=== PATIENT | female | born 1955 | race Caucasian/White ===

== ENCOUNTER 2019-03-26 10:36 | Day surgery (SDC) | payer OTHER ==
[2019-03-20 12:42] LABS: ABSOLUTE EOSINOPHILS # (AUTO) 0.1 10^3/uL (0.0-0.6); ABSOLUTE LYMPHOCYTES (AUTO) 3.5 10^3/uL (0.5-4.7); ABSOLUTE MONOCYTES (AUTO) 0.9 10^3/uL (0.1-1.4); ABSOLUTE NEUT (AUTO) 10.7 10^3/uL (1.7-8.2); BASOPHILS % (AUTO) 0.3 % (0-2); EOSINOPHILS % (AUTO) 0.3 % (0-6); HEMATOCRIT 45.8 % (36.0-47.0); HEMOGLOBIN 15.2 g/dL (12.0-15.5); LYMPHOCYTES % (AUTO) 22.9 % (13-45); MEAN CORPUSCULAR HEMOGLOBIN 28.2 pg (27.0-33.4); MEAN CORPUSCULAR HGB CONC 33.1 g/dL (32.0-36.0); MEAN CORPUSCULAR VOLUME 85 fl (80-97); PLATELET COUNT 334 10^3/uL (150-450); RED BLOOD COUNT 5.39 10^6/uL (3.72-5.28); RED CELL DISTRIBUTION WIDTH 14.8 % (11.5-14.0); SEGMENTED NEUTROPHILS % (AUTO) 70.5 % (42-78); TOTAL CELLS COUNTED % (AUTO) 100 %; WHITE BLOOD COUNT 15.2 10^3/uL (4.0-10.5)
[2019-03-20 13:07] LABS: ANION GAP 10 (5-19); BLOOD UREA NITROGEN 22 mg/dL (7-20); CALCIUM 9.9 mg/dL (8.4-10.2); CARBON DIOXIDE 28 mmol/L (22-30); CHLORIDE 103 mmol/L (98-107); GLUCOSE 125 mg/dL (75-110); POTASSIUM 4.8 mmol/L (3.6-5.0); SODIUM 140.6 mmol/L (137-145)
--- NOTE | 2019-03-20 13:52 | EKG REPORT ---
SEVERITY:- BORDERLINE ECG - SINUS RHYTHM NONSPECIFIC T INVERSIONS ANTEROSEPTAL WALL. : Confirmed by: Sheldon Lazo MD 20-Mar-2019 13:52:16
[~2019-03-26 10:36] MED LIST: BUPIVACAINE HCL 0.25 % INJ/PF (2.5 MG/1 ML) 30 ML VIAL ONE; CEFAZOLIN 2 GM/D5W RTU 2 GM/50 ML RTUPB IV SCH; GABAPENTIN 400 MG CAPSULE PO PRN; RINGERS SOLUTION,LACTATED 1,000 ML IV PRN
[2019-03-26 11:29] LABS: APPEARANCE,URINE CLOUDY; BILIRUBIN,URINE NEGATIVE (NEGATIVE); COLOR,URINE YELLOW; GLUCOSE, URINE >=500 mg/dL (NEGATIVE); KETONES,URINE NEGATIVE (NEGATIVE); LEUKOCYTE ESTERASE,URINE SMALL (NEGATIVE); NITRITE,URINE NEGATIVE (NEGATIVE); PROTEIN,URINE NEGATIVE (NEGATIVE); URINE SPECIFIC GRAVITY 1.025; UROBILINOGEN,URINE NEGATIVE mg/dL (<2.0)
[2019-03-26] MEDS ORDERED: GABAPENTIN 400 MG CAPSULE ONE (12:13)
[2019-03-26 12:30] LABS: ANION GAP 10 (5-19); BLOOD UREA NITROGEN 20 mg/dL (7-20); CALCIUM 9.3 mg/dL (8.4-10.2); CARBON DIOXIDE 24 mmol/L (22-30); CHLORIDE 107 mmol/L (98-107); GLUCOSE 112 mg/dL (75-110); POTASSIUM 4.7 mmol/L (3.6-5.0); SODIUM 140.7 mmol/L (137-145)
[2019-03-26] MEDS ORDERED: ACETAMINOPHEN 1,000 MG/100 ML RTUPB IV ONE (13:33)
[2019-03-26] MEDS ORDERED: PROPOFOL INJ 200 MG/20 ML VIAL IV ONE (13:33)
[2019-03-26] MEDS ORDERED: FENTANYL CITRATE INJ/PF 250 MCG/5 ML AMPULE ONE (13:33)
[2019-03-26] MEDS ORDERED: MIDAZOLAM 2 MG/2 ML INJ ONE (13:33)
[2019-03-26] MEDS ORDERED: BUPIVACAINE HCL 0.25 % INJ/PF (2.5 MG/1 ML) 30 ML VIAL ONE (13:37)
[2019-03-26] MEDS ORDERED: ONDANSETRON HCL INJ/PF 4 MG/2 ML SDV ONE (13:43)
[2019-03-26] MEDS ORDERED: LIDOCAINE 2% INJ-PF (20 MG/ML) 2 ML AMPUL ONE (13:43)
[2019-03-26] MEDS ORDERED: ROCURONIUM BROMIDE INJ 50 MG/5 ML VIAL IV ONE (13:43)
[2019-03-26] MEDS ORDERED: PHENYLEPHRINE HCL INJ/PF 10 MG/1 ML SDV ONE (13:43)
[2019-03-26] MEDS ORDERED: GLYCOPYRROLATE 1 MG/5 ML VIAL ONE (13:43)
[2019-03-26] MEDS ORDERED: NEOSTIGMINE METHYLSULFATE 10 MG/10 ML VIAL ONE (13:43)
[2019-03-26] MEDS ORDERED: DEXAMETHASONE SOD PHOSPHATE INJ 4 MG/1 ML VIAL ONE (13:43)
[2019-03-26] MEDS ORDERED: CEFAZOLIN INJ 1 GM VIAL ONE (14:02)
[2019-03-26] MEDS ORDERED: MEPERIDINE HCL/PF INJ 25 MG/1 ML DISP.SYRIN IV PRN ×2 (14:14→18:24)
[2019-03-26] MEDS ORDERED: DIPHENHYDRAMINE HCL 50 MG/ML VIAL IV PRN ×2 (14:14→18:24)
[2019-03-26] MEDS ORDERED: OXYCODONE-ACETAMINOPHEN 5-325 MG TABLET PO PRN ×5 (14:14→18:24)
[2019-03-26] MEDS ORDERED: PROMETHAZINE HCL INJ 25 MG/1 ML VIAL IV PRN ×4 (14:14→18:24)
[2019-03-26] MEDS ORDERED: FENTANYL CITRATE INJ/PF 100 MCG/2 ML AMPUL IV PRN ×6 (14:14→18:24)
[2019-03-26] MEDS ORDERED: MORPHINE SULFATE 10 MG/ML INJ IV PRN ×2 (14:14→18:24)
[2019-03-26] MEDS ORDERED: MORPHINE SULFATE 10 MG/ML INJ ONE (14:59)
[2019-03-26] MEDS ORDERED: FENTANYL CITRATE INJ/PF 100 MCG/2 ML AMPUL ONE ×2 (14:59→17:48)
[2019-03-26] MEDS ORDERED: METHYLENE BLUE 50 MG/10 ML AMPULE ONE (16:46)
[2019-03-26] MEDS ORDERED: ESTROGENS,CONJUGATED 0.625 MG/1 GM 30 GM TUBE PV ONE (17:30)
[2019-03-26] MEDS ORDERED: ONDANSETRON HCL INJ/PF 4 MG/2 ML SDV IV PRN ×2 (17:40→18:24)
--- NOTE | 2019-03-26 17:49 | Discharge Summary ---
Discharge Summary (SDC) - Discharge Final Diagnosis: Postmenopausal Bleeding Enlarged fibroid uterus Date of Surgery: 03/26/19 Discharge Date: 03/26/19 Condition: Good Forms: Post Operative Treatment or Instructions: Robotic assisted Myomectomy, TLH, BSO Diagnostic cystoscopy Referrals: LALY ANDERSON MD [NO LOCAL MD] - (Please Call AIR MOVING TECHNICIAN RN for clinical concerns and to book a follow up appt. [phone].) Discharge Diet: As Tolerated Respiratory Treatments at Home: Deep Breathing/Coughing Discharge Activity: Activity As Tolerated, Balance Activity w/Rest, No Lifting Over 10 Pounds, Pelvic Rest, Slowly Increase Activity, Walk Frequently Home Care Assistance: None Needed Report the Following to Your Physician Immediately: Vomiting, Increase in Pain, Fever over 101 Degrees, Unusual Bleeding, Drainage-Foul Smelling, Increased Vaginal Bleed, Large Clots, IV Site Infection Signs, Urinary Infection Signs - or trouble emptying your bladder, please report to RN by phone or to [facility] if after business hours.
[2019-03-26] MEDS ORDERED: (PENDING PHARMACY ID) (Diclofenac Sodium [Voltaren] 100 GM) TP PRN (19:46)
[2019-03-26] MEDS ORDERED: EVOLOCUMAB 420 MG SQ SCH (20:00)
[2019-03-26] MEDS ORDERED: PROPRANOLOL HCL 60 MG PO SCH (22:00)
[2019-03-26 22:12] VITALS: BP 114/62
[2019-03-27] MEDS ORDERED: LEVOTHYROXINE SODIUM 0.025 MG TABLET PO SCH (06:00)
[2019-03-27] MEDS ORDERED: LEVOTHYROXINE SODIUM 0.1 MG TABLET PO SCH (06:00)
[2019-03-27] MEDS ORDERED: (PENDING PHARMACY ID) (Levothyroxine Sodium [Synthroid] 125 MCG) PO SCH (08:00)
[2019-03-27] MEDS ORDERED: CETIRIZINE 10 MG TABLET PO SCH (10:00)
[2019-03-27] MEDS ORDERED: (PENDING PHARMACY ID) (Cetirizine Hcl [Zyrtec] 10 MG) PO SCH (10:00)
[2019-03-27] MEDS ORDERED: (PENDING PHARMACY ID) (Lisinopril [Lisinopril] 20 MG) PO SCH (10:00)
[2019-03-27] MEDS ORDERED: VENLAFAXINE HCL 37.5 MG CAP.SR.24H PO SCH (10:00)
[2019-03-27] MEDS ORDERED: MULTIVITAMIN TABLET PO SCH (10:00)
[2019-03-27] MEDS ORDERED: LISINOPRIL 10 MG TABLET PO SCH (10:00)
[2019-03-27] MEDS ORDERED: (PENDING PHARMACY ID) (Empagliflozin [Jardiance] 25 MG) PO SCH (10:00)
[2019-03-27] MEDS ORDERED: (PENDING PHARMACY ID) (Metformin Hcl [Metformin Hcl Er] 500 MG) PO SCH (10:00)
[2019-03-30] MEDS ORDERED: (PENDING PHARMACY ID) (Cholecalciferol (Vitamin D3) [Vitamin D3] 50,000 UNIT) PO SCH (10:00)
[2019-03-30] MEDS ORDERED: ERGOCALCIFEROL (VITAMIN D2) 50000 UNIT (1.25 MG) CAPSULE PO SCH (10:00)
--- NOTE | 2019-04-09 19:44 | OPERATIVE REPORT E ---
Operative Report NAME: DORITA CANO : 1955 AGE: 63Y DATE OF SURGERY: 03/26/2019 ROOM: 212 PREOPERATIVE DIAGNOSIS: POSTMENOPAUSAL BLEEDING, HISTORY OF TAMOXIFEN USE, HISTORY OF BREAST CARCINOMA IN SITU. POSTOPERATIVE DIAGNOSIS: POSTMENOPAUSAL BLEEDING, HISTORY OF TAMOXIFEN USE, HISTORY OF BREAST CARCINOMA IN SITU. OPERATION: ROBOTIC ASSISTED TOTAL LAPAROSCOPIC HYSTERECTOMY AND BILATERAL SALPINGO-OOPHORECTOMY AND MYOMECTOMY. CYSTOSCOPY. SURGEON: LALY ANDERSON M.D. ANESTHESIA: General. COMPLICATIONS: None. ESTIMATED BLOOD LOSS: 200 mL. URINE OUTPUT: Clear at the end of the procedure. SPECIMENS: Uterine fibroid, uterus, cervix, bilateral tubes and ovaries. FINDINGS: Enlarged uterus with large leiomyoma in the posterior fundal region. Normal appearing fallopian tubes and postmenopausal appearing ovaries. INDICATIONS: This is a 63-year-old female with a history of postmenopausal bleeding despite interventions. Has been biopsied multiple times with benign findings. 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 At this time, she desires definitive surgical management. After discussing the risks, benefits, and alternatives including but not limited to observation, further medical management, hysteroscopy, and open surgical management, she elected for the above procedure. PROCEDURE: After her consent was properly completed, she was taken to the operating room, where general anesthesia was induced with endotracheal intubation. She was transferred to a dorsal lithotomy position with adjustable Melvin stirrups, prepped and draped in the usual sterile fashion. Surgical timeout was held. I placed a Almazan catheter and a VCare uterine manipulator. Gloves were changed, and I proceeded above, where 0.25% plain Marcaine local anesthetic was placed infraumbilical, and a 12 mm skin incision was made with the scalpel, followed by a Veress needle placement and insufflation of the peritoneal cavity to 15 mmHg. The Veress was removed and a 12 mm bladeless trocar was advanced into the pneumoperitoneum and immediate visualization with the camera demonstrated an atraumatic entry, and the findings were noted above. Subsequently, we placed two right lateral and one left lateral port, all 8 mm in size, following the typical routine of local anesthetic followed by a skin incision with placement of the port under direct visualization. With all the ports in place, the patient was placed in steep Trendelenburg. The robot was docked and I scrubbed out and proceeded to the robotic console. The pelvic anatomy was inspected and the ureters were identified by peristalsis and their usual course at the pelvic brim bilaterally. Because the uterine fibroid was large and impaired manipulation of the uterus and visualization for removal, I began by removing the fibroid. The area over the fibroid was cauterized and opened using the vessel sealer. The vessel sealer was also used to dissect the fibroid from the myometrium and remove it, and cauterize its blood supply. The fibroid was placed in the posterior cul-de-sac. At this time, I began dissection on the right hand side using the vessel sealer. The IP ligament was elevated far from the visualized ureter. It was cauterized and transected near its connection to the ovary. Next, the fallopian tube and ovary were dissected from the broad ligament using the vessel sealer and continuing along toward the uterine body. Next, the round ligament was cauterized and transected, and the broad ligament was opened and dissected inferiorly and anteriorly with good visualization of the bladder. The bladder flap was created with the vessel sealer and was reduced inferiorly. Next, the uterine artery was identified and the dissection with cautery and transected near its insertion at the lower uterine segment. Then, carefully hugging the uterus, the dissection was continued alongside of the cervix at the top of the coring. The same dissection was also completed on the left hand side. The areas of the dissections were noted to be hemostatic. Then, the edge of the VCare cervical cup was identified. Monopolar scissors replaced the vessel sealer and arm 1. Colpotomy was then achieved with monopolar scissors and carried around circumferentially until the specimen was free and pulled through the vagina. The previously removed fibroid was also removed through the vagina. The monopolar scissors were replaced with the mary suture cut needle hazardous materials driver. The vaginal cuff was then closed with a running V-Loc 3-0 Monocryl suture incorporating uterosacral pedicles for support of the vaginal cuff. The pelvis was irrigated copiously and hemostasis was noted. FloSeal hemostatic agent was applied to the area over the vaginal cuff and the broad ligament dissection, and the IP vessel dissection. The areas all appeared hemostatic and both ureters were able to be seen in their course; however, because of extensive dissection over the bladder and the size of the uterus, the decision was made to complete cystoscopy. At this point, all the instruments were removed. The pressure in the abdomen was decreased to 5 mmHg. The robot was undocked. The patient was taken out of steep Trendelenburg. At this point, the Almazan catheter was removed and the cystoscope was placed with a 70 degree scope used to visualize the entire area of the bladder and the ureteral orifices. The bladder appeared intact without evidence of trauma, and both ureteral orifices were visualized with forceful ureteral jets. The bladder was then drained. The cystoscope was removed. The remainder of the insufflation of the abdomen and pelvis was released. The ports were removed. The 12 mm umbilical port fascia was closed with 0 Vicryl in interrupted fashion. The other incisions were closed with 4-0 Vicryl in a subcuticular fashion, as was the skin of the 12 mm port. The skin was also closed with Dermabond dressing. Anesthesia was reversed. Sponge, lap, and needle counts were correct at the end of the procedure and the patient was taken to the PACU in stable condition. DICTATING PHYSICIAN: LALY ANDERSON M.D. [id number] PHY#: [id number] ID: [id number] JOB#: [id number] ACCT: [id number] cc:LALY ANDERSON M.D. >
== END 2019-03-26 23:00 | disposition home or self-care (01) ==
LOC: OROUT 10:36 → 2N 19:22 → OROUT 23:00
PROVIDERS: ATTEND Obstetrics & Gynecology
DX: N95.0 Postmenopausal bleeding (principal); N83.02 Follicular cyst of left ovary; N83.8 Other noninflammatory disorders of ovary, fallopian tube and broad ligament; D25.1 Intramural leiomyoma of uterus; I10 Essential (primary) hypertension; E11.9 Type 2 diabetes mellitus without complications; E89.0 Postprocedural hypothyroidism; Z79.4 Long term (current) use of insulin; Z85.850 Personal history of malignant neoplasm of thyroid; Z85.3 Personal history of malignant neoplasm of breast; E66.9 Obesity, unspecified; Z68.39 Body mass index [BMI] 39.0-39.9, adult; Z79.899 Other long term (current) drug therapy
CPT/HCPCS: 58571; S2900; 36415; 80048; 81001; 82962; 840; 85025; 86850; 86900; 86901; 88307; 93005; 93010; J0131; J0690; J1100; J2250; J2270; J2370; J2405; J2704; J2710; J3010; J3490; Q9968

== ENCOUNTER 2020-11-13 08:24 | Day surgery (SDC) | payer MEDICARE, OTHER ==
[~2020-11-13 08:24] MED LIST changes: -BUPIVACAINE HCL 0.25 % INJ/PF (2.5 MG/1 ML) 30 ML VIAL ONE; -CEFAZOLIN 2 GM/D5W RTU 2 GM/50 ML RTUPB IV SCH; -GABAPENTIN 400 MG CAPSULE PO PRN; +KETOROLAC TROMETHAMINE 0.45% 4 DROP/0.4 ML DROPERETTE OS PRN; -RINGERS SOLUTION,LACTATED 1,000 ML IV PRN; +TETRACAINE HCL 0.5% OPH SOLN 4 ML ONE
[2020-11-13] MEDS ORDERED: FENTANYL CITRATE INJ/PF 100 MCG/2 ML AMPUL ONE (08:57)
[2020-11-13] MEDS ORDERED: MIDAZOLAM 2 MG/2 ML INJ ONE (08:57)
[2020-11-13] MEDS ORDERED: ONDANSETRON HCL INJ/PF 4 MG/2 ML SDV ONE (08:57)
[2020-11-13] MEDS: TROPICAMIDE 1% OPH SOLN 15 ML OS PRN ×3 (09:25→09:49)
[2020-11-13] MEDS: TETRACAINE HCL 0.5% OPH SOLN 4 ML OS PRN ×2 (09:25→09:50)
[2020-11-13] MEDS: BESIFLOXACIN HCL 0.6% OPH SUSP 5 ML BOTTLE OS PRN ×4 (09:26→10:22)
[2020-11-13] MEDS: CYCLOPENTOLATE 0.2%/PHENYLEPHRINE 1% OPH SOLN 2 ML OS PRN ×3 (09:26→09:49)
[2020-11-13] MEDS: LIDOCAINE 1%/PHENYLEPHRINE 1.5% 1 ML VIAL ONE ×2 (10:02→10:12)
[2020-11-13] MEDS: CHONDR SU A NA/HYALUR INTRAOC KIT (SURGICARE) ONE ×2 (10:02→10:12)
[2020-11-13] MEDS: EPINEPHRINE INJ/PF 1 MG/1 ML AMPULE ONE ×2 (10:02→10:12)
[2020-11-13] MEDS: PREDNISOLONE ACETATE 1% OPH SUSP 5 ML OS PRN ×2 (10:22)
[2020-11-13] MEDS: DORZOLAMIDE HCL 2%/TIMOLOL MALEAT 0.5% OPH SOLN 10 ML OS PRN ×2 (10:22)
--- NOTE | 2020-11-13 12:17 | Operative Report ---
[facility]: DATE OF SURGERY: 11/13/2020 PREOPERATIVE DIAGNOSIS: Cataracts, left eye POSTOPERATIVE DIAGNOSIS: Cataract, left eye OPERATION: Cataract extraction with insertion of an toric IOL of the left eye. Intraocular Lens Model: [20.5 SN 6 AT 3 lens rotated to 180] Underwent surgery for difficulty seeing small print SURGEON: Lalo Blackmon MD ANESTHESIA: Topical PROCEDURE: After obtaining appropriate consent, the patient's left eye was prepped and draped in a sterile fashion as well as the surgeon in the sterile manner and cataract surgery was started. First a paracentesis blade was used to make a side-port incision. Viscoelastic was used to inflate the anterior chamber. Next a 2.4 mm incision was made with a 2.4 mm blade, clear corneal temporarily. A continuous capsulorrhexis was made using a cystotome and Utrata forceps. Following this hydrodissection was carried out to make the lens fully loose and mobile and it was rotated 90 degrees. Following this, a divide and conquer technique was used to phacoemulsify the lens. The remaining cortex was removed with an irrigation/aspiration. Provisc was instilled into the capsular bag to inflate the bag.The intraocular lens was placed. The remaining viscoelastic material was removed with irrigation/aspiration. Following this, the incision was found to be watertight. Besivance and Cosopt was instilled into the eye and a protective shield was placed over the eye. The patient was returned to the postoperative recovery in a stable condition.
== END 2020-11-13 11:00 | disposition home or self-care (01) ==
LOC: SC 08:24
PROVIDERS: ATTEND Internal Medicine
DX: H25.12 Age-related nuclear cataract, left eye (principal); H04.123 Dry eye syndrome of bilateral lacrimal glands; E11.36 Type 2 diabetes mellitus with diabetic cataract; I10 Essential (primary) hypertension; E78.00 Pure hypercholesterolemia, unspecified; M19.90 Unspecified osteoarthritis, unspecified site; Z79.84 Long term (current) use of oral hypoglycemic drugs; G47.33 Obstructive sleep apnea (adult) (pediatric); K21.9 Gastro-esophageal reflux disease without esophagitis; E66.9 Obesity, unspecified
CPT/HCPCS: 66984; 82962; V2787; J2250; J3490 ×2; A9270; J0171; J3010; J2405